=== PATIENT | female | born 1965 | race Two or more races ===

== ENCOUNTER 2021-06-29 19:14 | Emergency (ER) | payer OTHER ==
[~2021-06-29] VITALS: Ht 162.6 cm; Wt 76.2 kg
[2021-06-30] MEDS ORDERED: PEPCID AC20 MG PO (03:33)
[2021-06-30] MEDS ORDERED: ZYRTEC10 MG PO (03:33)
[2021-06-30] MEDS ORDERED: LEVALBUTER0.63 MG/3 IH (03:33)
[2021-06-30] MEDS ORDERED: ACETAMINOPHEN650 M2 PO (03:33)
[2021-06-30] MEDS ORDERED: PROAIR HFA8.5 GM IH (03:33)
[2021-06-30] MEDS ORDERED: MUCINEX DM ER1 EACH PO (03:33)
[2021-06-30] MEDS ORDERED: MOLNUPIRAVIR (200 MG PO (03:33)
[2021-06-30] MEDS ORDERED: OSEL75CA PO (04:01)
== END 2021-06-30 04:47 | disposition home or self-care (01) ==
LOC: ER 19:14
DX: U07.1 COVID-19 (principal); M81.0 Age-related osteoporosis without current pathological fracture; M06.9 Rheumatoid arthritis, unspecified; E03.9 Hypothyroidism, unspecified; K29.70 Gastritis, unspecified, without bleeding; Z88.6 Allergy status to analgesic agent; J11.1 Influenza due to unidentified influenza virus with other respiratory manifestations

== ENCOUNTER 2021-08-19 15:37 | Emergency (ER) | payer OTHER ==
[~2021-08-19] VITALS: Ht 121.9 cm; Wt 81.2 kg
[~2021-08-19 15:37] MED LIST: ACETAMINOPHEN650 M2 PO; LEVALBUTER0.63 MG/3 IH; MOLNUPIRAVIR (200 MG PO; MUCINEX DM ER1 EACH PO; OSEL75CA PO; PEPCID AC20 MG PO; PROAIR HFA8.5 GM IH; ZYRTEC10 MG PO
[2021-08-19] MEDS ORDERED: SYNTHROID150 MCG (15:55)
[2021-08-19] MEDS ORDERED: VOLTAREN ARTHRI20 GM (15:56)
[2021-08-19] MEDS ORDERED: HUMALOG100 UNIT/2 (15:56)
[2021-08-19] MEDS ORDERED: LANTUS SOL100 UNIT/1 (15:56)
[2021-08-19] MEDS ORDERED: OSEL75CA PO (18:32)
[2021-08-19] MEDS ORDERED: MEDROLPACK PO (18:32)
[2021-08-19] MEDS ORDERED: TUSSIN DM LIQU118 ML PO (18:32)
== END 2021-08-19 18:48 | disposition home or self-care (01) ==
LOC: ER 15:37
DX: U07.1 COVID-19 (principal); Z88.6 Allergy status to analgesic agent; E11.9 Type 2 diabetes mellitus without complications; Z79.4 Long term (current) use of insulin; E03.9 Hypothyroidism, unspecified; M06.9 Rheumatoid arthritis, unspecified; J11.1 Influenza due to unidentified influenza virus with other respiratory manifestations; Z87.891 Personal history of nicotine dependence

== ENCOUNTER 2023-12-04 16:46 | Emergency (ER) | payer OTHER ==
[~2023-12-04] VITALS: Ht 162.6 cm; Wt 99.8 kg
[~2023-12-04 16:46] MED LIST changes: +HUMALOG100 UNIT/2; +LANTUS SOL100 UNIT/1; +MEDROLPACK PO; +SYNTHROID150 MCG; +TUSSIN DM LIQU118 ML PO; +VOLTAREN ARTHRI20 GM
[2023-12-04] MEDS ORDERED: VAZALORE81 MG (16:54)
[2023-12-04] MEDS ORDERED: LIPITOR40 M1 (16:54)
[2023-12-04] MEDS ORDERED: COZAAR25 MG (16:54)
[2023-12-04] MEDS ORDERED: METOCLOPRAMIDE HCL 5 MG/ML VIAL IM ONE (17:15)
[2023-12-04] MEDS ORDERED: FAMOTIDINE/PF 20 MG/2 ML VIAL IV PUSH ONE (17:15)
[2023-12-04 18:07] LABS: HEMATOCRIT 38.3 % (36.0-45.00); HEMOGLOBIN 12.9 g/dL (12.0-15.00); MEAN CELL VOLUME 89.6 fL (80.00-100.00); MEAN CORPUSCULAR HEMOGLOBIN 30.3 pg (27.00-32.0); MEAN CORPUSCULAR HGB CONC 33.8 g/dl (32.0-36.0); PLATELET COUNT 342 K/uL (150-450); RED BLOOD COUNT 4.28 M/uL (4.00-6.00); RED CELL DISTRIBUTION WIDTH 16.4 % (11.5-14.5)
[2023-12-04 18:32] LABS: ALBUMIN 3.8 gm/dL (3.4-5.0); BILIRUBIN TOTAL 0.34 mg/dL (0.3-1.2); CREATININE SERUM 1.03 mg/dL (0.55-1.02); GFR 55.04; GLOBULINA 5.2 G/DL (2.4-3.5); POTASSIUM 4.28 mEq/L (3.5-5.1)
[2023-12-04 18:38] LABS: INR 1.04; PARTIAL THROMBOPLASTIN TIME 28.9 SECONDS (22.0-34.0); PROTHROMBIN TIME 11.3 SECONDS (9.0-11.5)
[2023-12-04] MEDS ORDERED: PROMETHAZINE HCL 25 MG/ML AMPUL IM ONE (19:00)
[2023-12-04] MEDS ORDERED: MEPERIDINE HCL/PF 50 MG/ML VIAL IM ONE (19:00)
[2023-12-04 19:02] LABS: URINE APPEARANCE Clear; URINE BILIRRUBIN Negative (NEGATIVE); URINE BLOOD Negative; URINE COLOR Yellow; URINE GLUCOSE Negative (NEGATIVE); URINE KETONE Negative (NEGATIVE); URINE LEUKOCYTE Negative; URINE NITRATE Negative; URINE UROBILINOGEN 0.2 E.U./dl
[2023-12-04 19:06] LABS: URINE RBC 3.2 uL (0.0-20.8)
[2023-12-04 19:08] LABS: URINE PROTEIN 100 (NEGATIVE)
== END 2023-12-04 20:34 | disposition home or self-care (01) ==
LOC: ER 16:46
PROVIDERS: General Practice
DX: R10.84 Generalized abdominal pain (principal); E11.9 Type 2 diabetes mellitus without complications; Z79.4 Long term (current) use of insulin; I10 Essential (primary) hypertension; Z88.8 Allergy status to other drugs, medicaments and biological substances
CPT/HCPCS: 36415; 74176; 96365; 96372; 99284; J2250; J2765; J3490